=== PATIENT | female | born 1925 | race Caucasian/White ===

== ENCOUNTER 2016-09-05 12:27 | Emergency (ER) | payer OTHER, MEDICARE ==
[~2016-09-05] VITALS: Ht 154.9 cm; Wt 55.6 kg
[~2016-09-05 12:27] MED LIST: ALPRAZOLAM0.5 MG PO; BP MEDICATION PO; FISH OIL SOFTG1 EACH PO; FOSINOPRIL SODI10 MG PO; IRON325 M1 PO; LEVOTHROID25 MCG PO; LOPRESSOR25 MG PO; MULTIVITAMIN1 EAC1 PO; NORVASC5 MG PO; OMEPRAZOLE20 M2 PO; PROTONIX40 MG PO; SOMA350 MG PO; TRAZODONE HCL50 MG PO; VITAMIN B6 PO; VITAMIN D10000 UNIT PO; Vitamin B-12 PO
[2016-09-05 13:20] LABS: EOSINOPHIL (%) 1.4 % (0-5); EOSINOPHIL COUNT 0.1 K/uL (0-0.3); HEMATOCRIT 40.1 % (36.0-46.0); IMMATURE GRANULOCYTE (%) 0.3 % (0.0-0.7); INSTRUMENT ABS NEUTROPHIL CT 4.6 K/uL; MCH 29.8 PG (29.0-34.0); MCHC 31.9 G/DL (30.0-36.0); MCV 93.3 FL (83-99); MEAN PLAT.VOLUME 9.8 uM^3 (9.5-12.4); MONOCYTE (%) 9.1 % (3-12); MONOCYTE COUNT 0.6 K/uL (0-0.8); NEUTROPHIL (%) 72.5 % (45-76); NEUTROPHIL COUNT 4.6 K/uL (1.8-6.4); PLATELET COUNT 264 K/uL (156-360); RBC DIS.WIDTH-CV 14.1 % (11.8-14.6); RBC DIS.WIDTH-SD 48.7 % (39-53); WHITE BLOOD COUNT 6.3 K/uL (4.1-10.2)
[2016-09-05 13:28] LABS: CHLORIDE 107 mEq/L (99-109); POTASSIUM 4.3 mEq/L (3.7-5.4); SODIUM 139 mEq/L (136-147)
[2016-09-05 13:30] LABS: GLUCOSE 130 mg/dL (70-99)
[2016-09-05 13:31] LABS: ANION GAP 10 MEQ/L (2-14)
[2016-09-05 13:34] LABS: GFR ESTIMATE (CALCULATED) 50 mL/min/
[2016-09-05 13:35] LABS: UREA NITROGEN (BUN) 23 mg/dL (9-23)
[2016-09-05 13:40] LABS: TROP-I INTERPRETATION NEGATIVE; TROPONIN-I < 0.01 ng/mL (0.0-0.30)
[2016-09-05 16:16] VITALS: BP 146/78
== END 2016-09-05 16:17 ==
LOC: EME 12:27
PROVIDERS: Emergency Medicine
DX: R42 Dizziness and giddiness (principal); I10 Essential (primary) hypertension; Z96.653 Presence of artificial knee joint, bilateral; Z96.643 Presence of artificial hip joint, bilateral; W18.30XA Fall on same level, unspecified, initial encounter
CPT/HCPCS: 70450; 71010; 80048; 84484; 85025; 93005; 99281; 99285

== ENCOUNTER 2017-01-10 13:42 | Emergency (ER) | payer OTHER, MEDICARE ==
[~2017-01-10] VITALS: Ht 157.5 cm; Wt 55.0 kg
[2017-01-10 14:16] LABS: EOSINOPHIL (%) 2.1 % (0-5); EOSINOPHIL COUNT 0.1 K/uL (0-0.3); HEMATOCRIT 40.9 % (36.0-46.0); IMMATURE GRANULOCYTE (%) 0.5 % (0.0-0.7); INSTRUMENT ABS NEUTROPHIL CT 4.2 K/uL; LYMPHOCYTE COUNT 1.4 K/uL (1.0-2.8); MCH 29.7 PG (29.0-34.0); MCHC 31.1 G/DL (30.0-36.0); MCV 95.6 FL (83-99); MONOCYTE COUNT 0.7 K/uL (0-0.8); NEUTROPHIL (%) 64.1 % (45-76); NEUTROPHIL COUNT 4.2 K/uL (1.8-6.4); RBC DIS.WIDTH-CV 13.4 % (11.8-14.6); RED BLOOD COUNT 4.28 M/uL (3.80-5.20); WHITE BLOOD COUNT 6.6 K/uL (4.1-10.2)
[2017-01-10 14:25] LABS: CHLORIDE 110 mEq/L (99-109); POTASSIUM 4.2 mEq/L (3.7-5.4); SODIUM 142 mEq/L (136-147)
[2017-01-10 14:26] LABS: GLUCOSE 118 mg/dL (70-99)
[2017-01-10 14:28] LABS: ANION GAP 12 MEQ/L (2-14)
[2017-01-10 14:30] LABS: GFR ESTIMATE (CALCULATED) 45 mL/min/
[2017-01-10 14:31] LABS: UREA NITROGEN (BUN) 15 mg/dL (9-23)
[2017-01-10 14:37] LABS: TROP-I INTERPRETATION NEGATIVE; TROPONIN-I 0.01 ng/mL (0.0-0.30)
[2017-01-10 14:52] LABS: PLAT.SUFFICIENCY ADEQUATE; PLATELET COUNT 228 K/uL (156-360)
[2017-01-10 16:45] LABS: ADD MIUA? YES; BILIRUBIN NEGATIVE; BLOOD NEGATIVE; COLOR YELLOW ((YELLOW)); GLUCOSE (STRIP) NEGATIVE; KETONES NEGATIVE; LEUKOCYTES LARGE; NITRITE NEGATIVE; PROTEIN (STRIP) NEGATIVE; SPECIFIC GRAVITY 1.014 (1.000-1.030); UROBILINOGEN 0.2 MG/DL (0.2-1.0)
[2017-01-10 16:55] LABS: BACTERIA RARE /HPF; EPITHELIAL CELLS 2+ /HPF; MUCUS TRACE /LPF; UCUL ADDED? YES; WHITE BLOOD CELLS 20-30 /HPF (0-5)
[2017-01-10 17:18] VITALS: BP 183/83
== END 2017-01-10 17:20 ==
LOC: EME 13:42
PROVIDERS: Emergency Medicine
DX: R55 Syncope and collapse (principal); L29.9 Pruritus, unspecified; I10 Essential (primary) hypertension; Z96.643 Presence of artificial hip joint, bilateral; Z96.653 Presence of artificial knee joint, bilateral
CPT/HCPCS: 80048; 81003; 84484; 85025; 87086 GA; 93005; 99281; 99284; J7040